=== PATIENT | female | born 1970 | race Caucasian/White ===

== ENCOUNTER → 2019-06-25 | Outpatient (CLI) | payer OTHER | END | disposition home or self-care (01) | LOC: RAH 11:35 | PROVIDERS: ATTEND Physical Medicine & Rehabilitation | DX: M54.16 Radiculopathy, lumbar region (principal) | CPT/HCPCS: 72114 ==

== ENCOUNTER → 2019-07-30 | Outpatient (CLI) | payer OTHER ==
[~2019-07-30] MED LIST: GADODIAMIDE 10 MMOL/20 ML VIAL IV ONE
== END | disposition home or self-care (01) ==
LOC: RAH 08:42
PROVIDERS: ATTEND Physical Medicine & Rehabilitation
DX: M51.16 Intervertebral disc disorders with radiculopathy, lumbar region (principal); M48.061 Spinal stenosis, lumbar region without neurogenic claudication; M43.17 Spondylolisthesis, lumbosacral region
CPT/HCPCS: 72158; A9579

== ENCOUNTER → 2020-12-18 | Outpatient (CLI) | payer OTHER | END | disposition home or self-care (01) | LOC: RAH 10:25 | PROVIDERS: ATTEND Physical Medicine & Rehabilitation | DX: M43.17 Spondylolisthesis, lumbosacral region (principal); M46.1 Sacroiliitis, not elsewhere classified | CPT/HCPCS: 72195 ==

== ENCOUNTER → 2021-05-21 | Outpatient (CLI) | payer OTHER | END | disposition home or self-care (01) | LOC: RAH 15:05 | PROVIDERS: ATTEND Physical Medicine & Rehabilitation | DX: S32.058A Other fracture of fifth lumbar vertebra, initial encounter for closed fracture (principal); M43.17 Spondylolisthesis, lumbosacral region; M43.26 Fusion of spine, lumbar region; M25.551 Pain in right hip; M25.552 Pain in left hip; X58.XXXA Exposure to other specified factors, initial encounter; Y93.89 Activity, other specified; Y92.89 Other specified places as the place of occurrence of the external cause; Y99.8 Other external cause status; Z98.1 Arthrodesis status | CPT/HCPCS: 72114; 73522 ==